=== PATIENT | male | born 1945 | race Caucasian/White ===

== ENCOUNTER 2019-07-11 02:14 | Emergency (ER) | payer MEDICARE ==
[~2019-07-11] VITALS: Ht 177.8 cm; Wt 132.9 kg
--- OUTSIDE RECORDS SUMMARY | ~2019-07-11 | XMS | Encounter Summary ---
Demographics + + + | Address | [address] | | | [place] [address] | + + + | Home Phone | | + + + | Preferred Language | Unknown | + + + | Marital Status | | + + + | Taoism Affiliation | Unknown | + + + | Race | Unknown | + + + | Ethnic Group | Unknown | + + + Author + + + | Author | [facility] (Historical as of | | | 05-06-19) | + + + | Organization | [facility] (Historical as of | | | 05-06-19) | + + + | Address | Unknown | + + + | Phone | Unavailable | + + + Support + + +---------+ + | Name | Relationship | Address | Phone | + + +---------+ + | Kenn Wallace | ECON | Unknown | | + + +---------+ + Care Team Providers + +------+ + | Care Tank Carpenter Name | Role | Phone | + +------+ + | Omar Robles MD | PCP | | + +------+ + Reason for Visit + + + | Reason | Comments | + + + | Follow-up | Memory loss | + + + Encounter Details +--------+---------+ + + + | Date | Type | Department | Care Team | Description | +--------+---------+ + + + | 04/24/ | Office | [facility] | Dmitry Montes, | Memory loss (Primary | | 2019 | Visit | [facility] | MD [address] | Dx); Exercise | | | | [address] | [place], [place] | counseling; Dietary | | | | [place] | [address] | counseling | | | | [address] | | | | | | [phone] | | | +--------+---------+ + + + Social History + +-------+ +--------+------+ | Tobacco Use | Types | Packs/Day | Years | Date | | | | | Used | | + +-------+ +--------+------+ | Never Smoker | | | | | + +-------+ +--------+------+ + +---+---+---+ | Smokeless Tobacco: | | | | | Never Used | | | | + +---+---+---+ + + +---------+ + | Alcohol Use | Drinks/We | oz/Week | Comments | | | ek | | | + + +---------+ + | Yes | | | rarely | + + +---------+ + + + + | Sex Assigned at | Date Recorded | | | | + + + | Not on file | | + + + as of this encounter Last Filed Vital Signs + + + + | Vital Sign | Reading | Time Taken | + + + + | Blood Pressure | 94/47 | 04/24/2019 9:25 AM PDT | + + + + | Pulse | 66 | 04/24/2019 9:25 AM PDT | + + + + | Temperature | - | - | + + + + | Respiratory Rate | - | - | + + + + | Oxygen Saturation | 95% | 04/24/2019 9:25 AM PDT | + + + + | Inhaled Oxygen | - | - | | Concentration | | | + + + + | Weight | 128.2 kg (282 lb 9.6 | 04/24/2019 9:25 AM PDT | | | oz) | | + + + + | Height | 177.8 cm (5' 10") | 04/24/2019 9:25 AM PDT | + + + + | Body Mass Index | 40.55 | 04/24/2019 9:25 AM PDT | + + + + in this encounter Instructions Patient Instructions - Dmitry Montes MD - 04/24/2019 10:15 AM PDT Donepezil tablets Brand Name: Aricept What is this medicine? DONEPEZIL (avitia NEP e zil) is used to treat mild to moderate dementia caused by Alzheimer's disease. How should I use this medicine? Take this medicine by mouth with a glass of water. Follow the directions on the prescriptio n label. You may take this medicine with or without food. Take this medicine at regular inte rvals. This medicine is usually taken before bedtime. Do not take it more often than directe d. Continue to take your medicine even if you feel better. Do not stop taking except on your doctor's advice. If you are taking the 23 mg donepezil tablet, swallow it whole; do not cut, crush, or chew it. Talk to your leasing specialist regarding the use of this medicine in children. Special care may be needed. What side effects may I notice from receiving this medicine? Side effects that you should report to your doctor or health resident care provider as soon as p ossible: allergic reactions like skin rash, itching or hives, swelling of the face, lips, or tong ue feeling faint or lightheaded, falls loss of bladder control seizures signs and symptoms of a dangerous change in heartbeat or heart rhythm like chest pain; d izziness; fast or irregular heartbeat; palpitations; feeling faint or lightheaded, falls; br eathing problems signs and symptoms of infection like fever or chills; cough; sore throat; pain or troubl e passing urine signs and symptoms of liver injury like dark yellow or brown urine; general ill feeling or flu-like symptoms; light-colored stools; loss of appetite; nausea; right upper belly pain ; unusually weak or tired; yellowing of the eyes or skin slow heartbeat or palpitations unusual bleeding or bruising vomiting Side effects that usually do not require medical attention (report to your doctor or health resident care provider if they continue or are bothersome): diarrhea, especially when starting treatment headache loss of appetite muscle cramps nausea stomach upset What may interact with this medicine? Do not take this medicine with any of the following medications: certain medicines for fungal infections like itraconazole, fluconazole, posaconazole, an d voriconazole cisapride dextromethorphan; quinidine dofetilide dronedarone pimozide quinidine thioridazine ziprasidone This medicine may also interact with the following medications: antihistamines for allergy, cough and cold atropine bethanechol carbamazepine certain medicines for bladder problems like oxybutynin, tolterodine certain medicines for Parkinson's disease like benztropine, trihexyphenidyl certain medicines for stomach problems like dicyclomine, hyoscyamine certain medicines for travel sickness like scopolamine dexamethasone ipratropium NSAIDs, medicines for pain and inflammation, like ibuprofen or naproxen other medicines for Alzheimer's disease other medicines that prolong the QT interval (cause an abnormal heart rhythm) phenobarbital phenytoin rifampin, rifabutin or rifapentine What if I miss a dose? If you miss a dose, take it as soon as you can. If it is almost time for your next dose, ta ke only that dose, do not take double or extra doses. Where should I keep my medicine? Keep out of reach of children. Store at room temperature between 15 and 30 degrees C (59 and 86 degrees F). Throw away any unused medicine after the expiration date. What should I tell my health care provider before I take this medicine? They need to know if you have any of these conditions: asthma or other lung disease difficulty passing urine head injury heart disease history of irregular heartbeat liver disease seizures (convulsions) stomach or intestinal disease, ulcers or stomach bleeding an unusual or allergic reaction to donepezil, other medicines, foods, dyes, or preservat kali or trying to get breast-feeding What should I watch for while using this medicine? Visit your doctor or health resident care provider for regular checks on your progress. Check wi th your doctor or health resident care provider if your symptoms do not get better or if they get worse. You may get drowsy or dizzy. Do not drive, use machinery, or do anything that needs mental alertness until you know how this drug affects you. NOTE:This sheet is a summary. It may not cover all possible information. If you have questi ons about this medicine, talk to your doctor, pharmacist, or health care provider. Copyright 2019 [employer] in this encounter Progress Notes Dmitry Montes MD - 04/24/2019 10:15 AM PDTFormatting of this note may be different from the original. Subjective: Patient ID: Ceferino Wallace is a 73 y.o. male. HPI I have seen this patient on 01/17/19 for evaluation of memory deficit. - Onset, context and course: 2013; six months after ; progressive. 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 No problems with ADL but need to be reminded. No problem using appliance and tools but he m ay forget the sotove on. No hallucination. - Duration: Constant. - Frequency and last one: Daily. - Associated symptoms: No gait problem but arthritis. No incontinence. FLY using CPAP but i nsomnia. - Aggravating factors: None. - Alleviating factors: None. - Previous record/diagnosis and treatment: FLY on CPAP. Mood is good with no suicidal idea. CBC and CMP from Jul, 2018: Unremaakable. TSH was (2.02) and B12 was (824). Syphilis, NR. Since last visit: Stable, one partial fall (stood up fast), no injury. No dysphagia. No loc . No hallucination. Mood is ok, with no S/H ideas. Brain MRI 02/07/19: 1. Diffuse cerebral atrophy with probable mild chronic white matter microvascular ischemic gliosis. 2. Small area of susceptibility artifact in the frontal lobe which may represent chronic mi crohemorrhage, cavernoma, or focal calcification. Labs: Not done. WACE: 68/100 with MMSE of He does not drive. Past Medical History Diagnosis Date CAD (coronary artery disease) 02/04/2015 HTN (hypertension), benign 02/04/2015 Hyperlipidemia 02/04/2015 Neuropathy Type 2 diabetes mellitus (HCC) FHx: CAD HTN Social History Social History Marital status: Spouse name: N/A Number of children: N/A Years of education: N/A Occupational History Not on file. Social History Main Topics Smoking status: Never Smoker Smokeless tobacco: Never Used Alcohol use Yes Comment: rarely Drug use: No Sexual activity: Not on file Other Topics Concern Not on file Social History Narrative No narrative on file Past medical history, family history and social history were reviewed and updated as necess negrita. Review of Systems No report of new general, or neurologic symptoms except to what mentioned in my HPI. Objective: Physical Exam Vitals: Vitals: 04/24/19 0925 BP: 94/47 Pulse: 66 SpO2: 95% General: Well developed, in no acute distress Speech: Is normal; fluent and spontaneous with normal naming and repetition. Cognition: The patient is oriented to person, only. Cranial Nerves: At this time, the pupils are equal, round, and reactive to light. Extraocul ar movements are intact. Trigeminal sensation is intact. The face is symmetric. Voice is nor mal.The tongue has normal motion. Coordination: Normal finger to nose. Gait: Antalgic. Strength: Strength is 5-/5 in the upper and lower limbs. Light Touch: Normal light touch sensation in upper and lower extremities. 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 2- Obesity, FLY on CPAP and insomnia. 3- HTN and DM. I reviewed the available images with the patient and agree with the radiologist interpretat ion. H/o head trauma, left frontal GRE signal is most likely due to head trauma / HTN or les s likely vascular malformation. Right temporal arachnoid cyst. Plan: 1- The differential diagnosis and the necessary work up were discussed with the patient in detail. 2- I will request the previous record to be sent to my office for review. 3- We discussed the safety issues in detail including safe environment. No falls. 4- For #1, labs are pending. Educated him about healthy diet, weight control, physical and mental exercises. Discussed Aricept trial, he and son agreed. He decided to Hold on referra l to ST. 5- For #2, follow with PCP and consider referral to sleep specialist. 6- I covered with the patient all side effects of the regimen and the interaction with othe r medications (V and in written). Patient understands and agrees to proceed with the regimen / plan. 7- Risk factors modification per PCP. RTC in 2-3 months or prn. However, patient was instru cted to call with any concern, if symptoms are worsening, not improving or if any side effec ts related to regimen. in this encounter Plan of Treatment Not on fileas of this encounter Visit Diagnoses + + | Diagnosis | + + | Memory loss - Primary | + + | Exercise counseling | + + | Dietary counseling | + + | Dietary surveillance and counseling | + +
--- OUTSIDE RECORDS SUMMARY | ~2019-07-11 | XMS | Encounter Summary ---
Demographics + + + | Address | [address] | | | [place] [address] | + + + | Home Phone | | + + + | Preferred Language | Unknown | + + + | Marital Status | | + + + | Muslim Affiliation | Unknown | + + + | Race | Unknown | + + + | Ethnic Group | Unknown | + + + Author + + + | Author | [facility] (Historical as of | | | 05-06-19) | + + + | Organization | [facility] (Historical as of | | | 05-06-19) [...] Team Providers + +------+ + | Care Commercial Roofer Name | Role | Phone | + +------+ + | Omar Robles MD | PCP | | + +------+ + Reason for Visit +--------+ + | Reason | Comments | +--------+ + | Other | | +--------+ + Encounter Details +--------+ + + + + | Date | Type | Department | Care Team | Description | +--------+ + + + + | 08/ | Telephone | [facility] | Dmitry Montes, | Other | | 2019 | | [facility] | [address] | | | | | [address] | [place], [place] | | | | | [place], [place] | [address] | | | | | [address] | | | | | | [phone] | | | +--------+ + + + + Social History + +-------+ [...] + + + as of this encounter Plan of Treatment Not on fileas of this encounter Visit Diagnoses Not on filein this encounter"
--- OUTSIDE RECORDS SUMMARY | ~2019-07-11 | XMS | Encounter Summary ---
Demographics + + + | Address | [address] | | | [place] [address] | + + + | Home Phone | | + + + | Preferred Language | Unknown | + + + | Marital Status | | + + + | Latter-Day Affiliation | Unknown | + + + | Race | Unknown | + + + | Ethnic Group | Unknown | + + + Author + + + | Author | [facility] | | | and [place] | + + + | Organization | [facility] | | | and [place] | + + + | Address | Unknown | + + + | Phone | Unavailable | + + + Support + + + + + | Name | Relationship | Address | Phone | + + + + + | Ivis Wallace | ECON | [address] | | | | | [place] | | | | | [address] | | + + + + + | Kenn Wallace | ECON | Unknown | | + + + + + Care Team Providers + +------+ + | Care Horizontal Drill Operator Name | Role | Phone | + +------+ + | Kenn Camejo | PCP | | | MD | | | + +------+ + Reason for Visit + + + | Reason | Comments | + + + | Medication Refill | request | + + + Encounter Details +--------+ + + + + | Date | Type | Department | Care Team | Description | +--------+ + + + + | 06/13/ | Telephone | [facility] | Dmitry Montes, | Medication Refill | | 2019 | | NEUROLOGY [address] | (request) | | | | [address] | | | | | [place], [place] | [place] [address] | | | | | [address] | [phone] | | | | | [phone] | | | +--------+ + + + + Social History + +-------+ +--------+------+ | Tobacco Use | Types | Packs/Day | Years | Date | | | | | Used | | + +-------+ +--------+------+ | Never Smoker | | | | | + +-------+ +--------+------+ + + +---------+ + | Alcohol Use | Drinks/We | oz/Week | Comments | | | ek | | | + + +---------+ + | No | | | Alcoholic Drinks/day: rarely | + + +---------+ + + + + | Sex Assigned at | Date Recorded | | | | + + + | Not on file | | + + + + + + + | Job Start Date | Occupation | Industry | + + + + | Not on file | Not on file | Not on file | + + + + + + + + | Travel History | Travel Start | Travel End | + + + + + + | No recent travel history available. | + + documented as of this encounter Functional Status + + + + | Functional Status | Response | Date of Assessment | + + + + | Are you deaf or do you have serious | No | 10/14/2015 | | difficulty hearing? | | | + + + + | Are you blind or do you have serious | No | 10/14/2015 | | difficulty seeing, even when wearing | | | | glasses? | | | + + + + | Do you have serious difficulty walking or | No | 10/14/2015 | | climbing stairs? (5 years old or older) | | | + + + + | Do you have difficulty dressing or bathing? | No | 10/14/2015 | | (5 years old or older) | | | + + + + | Because of a physical, mental, or emotional | Yes - son is | 10/14/2015 | | condition, do you have difficulty doing | caregiver, pt is | | | errands alone such as visiting a doctor's | forgetful | | | office or shopping? [15 years old or | | | | older)] | | | + + + + + + + + | Cognitive Status | Response | Date of Assessment | + + + + | Because of a physical, mental, or emotional | Yes | 10/14/2015 | | condition, do you have serious difficulty | | | | concentrating, remembering, or making | | | | decisions? (5 years old or older) | | | + + + + documented as of this encounter Plan of Treatment +--------+---------+ + + + | Date | Type | Specialty | Care Team | Description | +--------+---------+ + + + | 07/25/ | Office | Neurology | Dmitry Montes, | | | 2019 | Visit | | MD [address] | | | | | | [address] | | | | | | [place] [address] | | | | | | [phone] | | | | | | | | +--------+---------+ + + + documented as of this encounter Visit Diagnoses Not on filedocumented in this encounter"
--- OUTSIDE RECORDS SUMMARY | ~2019-07-11 | XMS | Clinical Summary ---
Demographics + + + | Address | [address] | | | [place] [address] | + + + | Home Phone | | + + + | Preferred Language | Unknown | + + + | Marital Status | | + + + | Gnosticism Affiliation | Unknown | + + + | Race | Unknown | + + + | Ethnic Group | Unknown | + + + Author + + + | Author | [facility] | | | and [place] | + + + | Organization | [facility] | | | and [place] [...] [place] | | | | | [address] | | + + + + + | Kenn Wallace | ECON | Unknown | | + + + + + Care Team Providers + +------+ + | Care Story Analyst Name | Role | Phone | + +------+ + | Kenn Camejo | PCP | | | MD | | | + +------+ + Allergies + + + + + + | Active Allergy | Reactions | Severity | Noted | Comments | | | | | Date | | + + + + + + | Penicillins | Itching, Rash | Medium | 10/14/19 | | | | | | 16 | | + + + + + + Medications + + + +---------+------+------+-------+ | Medication | Sig | Dispensed | Refills | Star | End | Statu | | | | | | t | Date | s | | | | | | Date | | | + + + +---------+------+------+-------+ | aspirin 81 mg EC | Take 81 mg by mouth | | 0 | | | Activ | | tablet | Daily. | | | | | e | + + + +---------+------+------+-------+ | brimonidine | Place 1 drop into | | 0 | | | Activ | | (ALPHAGAN) 0.2% | both eyes 2 times | | | | | e | | ophthalmic solution | daily. | | | | | | + + + +---------+------+------+-------+ | artificial tears | Place 1 drop into | | 0 | | | Activ | | (REFRESH PLUS) 0.5% | both eyes 4 times | | | | | e | | SOLN | daily as needed. | | | | | | + + + +---------+------+------+-------+ | docusate sodium | Take 100 mg by mouth | | 0 | | | Activ | | (COLACE) 100 mg | 2 times daily. | | | | | e | | capsule | While taking pain | | | | | | | | medication to soften | | | | | | | | your stool. | | | | | | + + + +---------+------+------+-------+ | FLUoxetine | Take 60 mg by mouth | | 0 | | | Activ | | (PROZAC) 20 mg | Daily. For | | | | | e | | capsule | depression. Take | | | | | | | | three 20 mg capsules | | | | | | | | daily | | | | | | + + + +---------+------+------+-------+ | fluticasone | 2 sprays by Nasal | | 0 | | | Activ | | (FLONASE) 50 | route Daily. | | | | | e | | mcg/nasal spray | | | | | | | + + + +---------+------+------+-------+ | gabapentin | Take 100 mg by mouth | | 0 | | | Activ | | (NEURONTIN) 100 mg | nightly. | | | | | e | | capsule | | | | | | | + + + +---------+------+------+-------+ | latanoprost | Place 1 drop into | | 0 | | | Activ | | (XALATAN) 0.005% | both eyes nightly. | | | | | e | | ophthalmic solution | | | | | | | + + + +---------+------+------+-------+ | isosorbide | Take 60 mg by mouth | | 0 | | | Activ | | mononitrate (IMDUR) | Daily. | | | | | e | | 60 mg ER tablet | | | | | | | + + + +---------+------+------+-------+ | Multiple | Take 1 tablet by | | 0 | | | Activ | | Vitamins-Minerals | mouth Daily. | | | | | e | | (ADULT MULTIVITAMIN | | | | | | | | WITH MINERALS/IRON) | | | | | | | | TABS | | | | | | | + + + +---------+------+------+-------+ | omeprazole | Take 40 mg by mouth | | 0 | | | Activ | | (PRILOSEC) 20 mg | every morning | | | | | e | | capsule | (before breakfast). | | | | | | + + + +---------+------+------+-------+ | simvastatin | Take 40 mg by mouth | | 0 | | | Activ | | (ZOCOR) 80 mg tablet | nightly. Take 1/2 | | | | | e | | | tablet (40 mg) at | | | | | | | | bedtime to lower | | | | | | | | your cholesterol. | | | | | | + + + +---------+------+------+-------+ | magnesium oxide | Take 420 mg by mouth | | 0 | | | Activ | | (MAG-OX) 400 mg | Daily. | | | | | e | | tablet | | | | | | | + + + +---------+------+------+-------+ | benzonatate | Take 100 mg by mouth | | 0 | | | Activ | | (TESSALON) 100 mg | 3 times daily as | | | | | e | | capsule | needed for Cough. | | | | | | + + + +---------+------+------+-------+ | diphenhydrAMINE | Take 25 mg by mouth | | 0 | | | Activ | | (BENADRYL) 25 mg | every 4 hours as | | | | | e | | tablet | needed for Itching. | | | | | | + + + +---------+------+------+-------+ | carvedilol (COREG) | Take 12.5 mg by | | 0 | | | Activ | | 12.5 mg tablet | mouth 2 times daily | | | | | e | | | (with breakfast & | | | | | | | | dinner). | | | | | | + + + +---------+------+------+-------+ | lisinopril | Take 2.5 mg by mouth | | 0 | | | Activ | | (PRINIVIL,ZESTRIL) | Daily. | | | | | e | | 2.5 MG tablet | | | | | | | + + + +---------+------+------+-------+ | glucose 4 G | Take 16 g by mouth | | 0 | | | Activ | | chewable tablet | as needed (low blood | | | | | e | | | sugar). | | | | | | + + + +---------+------+------+-------+ | traZODone | Take 50 mg by mouth | | 0 | | | Activ | | (DESYREL) 50 mg | nightly as needed | | | | | e | | tablet | for Sleep. | | | | | | + + + +---------+------+------+-------+ | lactase (LACTAID) | Take 9,000 Units by | | 0 | | | Activ | | 9000 UNITS TABS | mouth 3 times daily | | | | | e | | | as needed. | | | | | | + + + +---------+------+------+-------+ | albuterol 90 | Inhale 2 puffs into | | 0 | | | Activ | | mcg/puff inhaler | the lungs every 4 | | | | | e | | | hours as needed for | | | | | | | | Shortness of Breath. | | | | | | + + + +---------+------+------+-------+ | melatonin 5 mg | Take 5 mg by mouth | | 0 | | | Activ | | tablet | nightly as needed | | | | | e | | | for Insomnia. | | | | | | + + + +---------+------+------+-------+ | OMEGA-3 KRILL OIL | Take 350 mg by mouth | | 0 | | | Activ | | PO | Daily. | | | | | e | + + + +---------+------+------+-------+ | ascorbic acid | Take 1,000 mg by | | 0 | | | Activ | | (VITAMIN C) 500 mg | mouth Daily. | | | | | e | | chewable tablet | | | | | | | + + + +---------+------+------+-------+ | acetaminophen | Take 1,000 mg by | | 0 | | | Activ | | (TYLENOL) 500 mg | mouth every 6 hours | | | | | e | | tablet | as needed for Pain | | | | | | | | (for knee | | | | | | | | arthritis). | | | | | | + + + +---------+------+------+-------+ | donepezil | Take 1 tablet by | 30 | 3 | 05/22 | | Activ | | (ARICEPT) 5 mg | mouth nightly. | tablet | | 02/06 | | e | | tablet | | | | 19 | | | + + + +---------+------+------+-------+ Active Problems + + + | Problem | Noted Date | + + + | Precordial pain | 10/14/2015 | + + + | S/P CABG x 3 | 10/14/2015 | + + + Encounters +--------+ + + + + | Date | Type | Specialty | Care Team | Description | +--------+ + + + + | 06/13/ | Telephone | Neurology | Dmitry Montes, | Medication Refill | | 2019 | | | MD | (request) | +--------+ + + + + | 05/05/ | Orders Only | Neurology | Dmitry Montes, | Other amnesia | | 2018 | | | MD | | +--------+ + + + + from Last 3 Months Family History + + +------+ + | Medical History | Relation | Name | Comments | + + +------+ + | Heart disease | Father | | | + + +------+ + | Hypertension | Father | | | + + +------+ + | Heart disease | Mother | | | + + +------+ + | Hypertension | Mother | | | + + +------+ + + +------+ + + | Relation | Name | Status | Comments | + +------+ + + | Father | | | | + +------+ + + | Father | | | | + +------+ + + | Mother | | | | + +------+ + + | Mother | | | | + +------+ + + Social History + +-------+ +--------+------+ [...] recent travel history available. | + + Last Filed Vital Signs + + + + | Vital Sign | Reading | Time Taken | + + + + | Blood Pressure | 94/47 | 04/24/2019928 PDT | + + + + | Pulse | 66 | 04/24/2019928 PDT | + + + + | Temperature | 36.7 C (98.1 F) | 10/14/20151229 PST | + + + + | Respiratory Rate | 12 | 10/14/20151229 PST | + + + + | Oxygen Saturation | - | - | + + + + | Inhaled Oxygen | - | - | | Concentration | | | + + + + | Weight | 128.2 kg (282 lb 9.6 | 04/24/2019928 PDT | | | oz) | | + + + + | Height | 177.8 cm (5' 10") | 04/24/2019928 PDT | + + + + | Body Mass Index | 40.55 | 04/24/2019 0929 PDT | + + + + Plan of Treatment +--------+---------+ + + + | Date | Type | Specialty | Care Team | Description | +--------+---------+ + + + | 07/25/ | Office | Neurology | Dmitry Montes, | | | 2019 | Visit | | MD Jg CRONIN | | | | | | [address] | | | | | | [place] [address] | | | | | | [phone] | | | | | | | | +--------+---------+ + + + + + + + + | Health Maintenance | Due Date | Last Done | Comments | + + + + + | Hepatitis C | | | | | Screening | 7 | | | + + + + + | Vaccine: | | | | | Dtap/Tdap/Td (1 - | 6 | | | | Tdap) | | | | + + + + + | Colorectal Cancer | | | | | Screening | 7 | | | | (Colonoscopy) | | | | + + + + + | Vaccine: Zoster (1 | | | | | of 2) | 7 | | | + + + + + | Vaccine: | | | | | Pneumococcal 65+ | 2 | | | | Low/Medium Risk (1 | | | | | of 2 - PCV13) | | | | + + + + + | Adult Annual | | | | | Wellness Visit | 9 | | | + + + + + | Vaccine: Influenza | | | | | (#1) | 9 | | | + + + + + Results Not on filefrom Last 3 Months Insurance + +--------+ +--------+ +---------+--------+ | Payer | Benefi | Subscriber | Effect | Phone | Address | Type | | | t Plan | ID | wilder | | | | | | / | | Dates | | | | | | Group | | | | | | + +--------+ +--------+ +---------+--------+ | [employer] | [place] | [id number] | | | | Indemn | | | [place] | | 016-Pr | | | ity | | | ADMIN | | esent | | | | | | [place] | | | | | | [place] | | | | | | + +--------+ +--------+ +---------+--------+ | [employer] INS | BANKER | [id number] | Effect | [phone] | | Indemn | | | S LIFE | [phone] | wilder | 4 | | ity | | | INS | | for | | | | | | | | all | | | | | | | | dates | | | | + +--------+ +--------+ +---------+--------+ | MEDICARE | MEDICA | [id number] | 05/21/20 | [phone] | | Medica | | | RE | | 11-Pre | 5 | | re | | | PART A | | sent | | | | | | AND B | | | | | | + +--------+ +--------+ +---------+--------+ + +--------+ +--------+ + + | Guarantor Name | Accoun | Relation to | Date | Phone | Billing Address | | | t Type | Patient | of | | | | | | | | | | + +--------+ +--------+ + + | Ceferino Wallace | Person | Self [birth year] | [address] | | | al/Fam | | 1946 | [phone] | [place] [address] | | | [place]idy | | | 1 (Home) | | + +--------+ +--------+ + + | Ceferino Wallace | Person | Self [birth year] | [address] | | | al/Fam | | 1946 | [phone] | [place] [address] | | | [place]idy | | | 1 (Home) | | + +--------+ +--------+ + + Advance Directives Patient has advance care planning documents on file. For more information, please contact:[facility] [place] [address]
--- OUTSIDE RECORDS SUMMARY | ~2019-07-11 | XMS | Encounter Summary ---
Demographics + + + | Address | [address] | | | [place] [address] | + + + | Home Phone | | + + + | Preferred Language | Unknown | + + + | Marital Status | | + + + | Denominational Affiliation | Unknown | + + + | Race | Unknown | + + + | Ethnic Group | Unknown | + + + Author + + + | Author | [facility] (Historical as of | | | 05-06-19) | + + + | Organization | [facility] (Historical as of | | | 05-06-19) [...] Team Providers + +------+ + | Care Chef German Name | Role | Phone | + [...] + + | 04/24/ | Office | [facility] | Dmitry Montes, | Memory loss (Primary | | 2019 | Visit | [facility] | MD [address] | Dx); Exercise | | | | [address] | [place], [place] | counseling; Dietary | | | | [place] | [address] | counseling | | | | [address] | | | | | | [phone] | | | +--------+---------+ + + + [...] crush, or chew it. Talk to your chef concierge regarding the use of this medicine in children. Special care may be needed. What side effects may I notice from receiving this medicine? Side effects that you should report to your doctor or health coronary care unit nurse as soon as p ossible: allergic reactions [...] attention (report to your doctor or health coronary care unit nurse if they continue or are bothersome): diarrhea, [...] this medicine? Visit your doctor or health coronary care unit nurse for regular checks on your progress. Check wi th your doctor or health coronary care unit nurse if your symptoms do not get better [...] pharmacist, or health care provider. Copyright 2019 [employer] in this encounter Progress Notes Dmitry Montes MD - 04/24/2019 10:15 AM PDTFormatting of this note may be different from the original. Subjective: Patient ID: Ceferino Wallace is a 73 y.o. male. HPI I have seen this patient on 01/17/19 for evaluation of memory deficit. - Onset, context and course: 2013; six months after ; progressive. 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
--- OUTSIDE RECORDS SUMMARY | ~2019-07-11 | XMS | Encounter Summary ---
Demographics + + + | Address | [address] | | | [place] [address] | + + + | Home Phone | | + + + | Preferred Language | Unknown | + + + | Marital Status | | + + + | Latter Day Affiliation | Unknown | + + + | Race | Unknown | + + + | Ethnic Group | Unknown | + + + Author + + + | Author | [facility] | | | and [place] | + + + | Organization | [facility] | | | and [place] | [...] [place] | | | | | [address] | | + + + + + | Kenn Wallace | ECON | Unknown | | + + + + + Care Team Providers + +------+ + | Care Product Safety Compliance Leader Name | Role | Phone | + [...] + + | 06/13/ | Telephone | [facility] | Dmitry Montes, | Medication Refill | | 2019 | | NEUROLOGY [address] | (request) | | | | [address] | [address] | | | | | [place], [place] | [place] [address] | | | | | [address] | [phone] | | | | | [phone] | | | +--------+ + + + [...] | | | | | [place] [address] | | | | | | [phone] | | | | | | | | +--------+---------+ + + + documented as of this encounter Visit Diagnoses Not on filedocumented in this encounter"
--- OUTSIDE RECORDS SUMMARY | ~2019-07-11 | XMS | Encounter Summary ---
Demographics + + + | Address | [address] | | | [place] [address] | + + + | Home Phone | | + + + | Preferred Language | Unknown | + + + | Marital Status | | + + + | Yazidism Affiliation | Unknown | + + + | Race | Unknown | + + + | Ethnic Group | Unknown | + + + Author + + + | Author | [facility] (Historical as of | | | 05-06-19) | + + + | Organization | [facility] (Historical as of | | | 05-06-19) [...] Team Providers + +------+ + | Care Sales Stock Associate Name | Role | Phone | + [...] | [address] | [place], [place] | | | | | [place], [place] | [address] | | | | | [address] | | | | | | [phone] | | | +--------+ + + + [...]
--- OUTSIDE RECORDS SUMMARY | ~2019-07-11 | XMS | Clinical Summary ---
Demographics + + + | Address | [address] | | | [place] [address] | + + + | Home Phone | | + + + | Preferred Language | Unknown | + + + | Marital Status | | + + + | Pentecostalism Affiliation | Unknown | + + + | Race | Unknown | + + + | Ethnic Group | Unknown | + + + Author + + + | Author | [facility] | | | and [place] | + + + | Organization | [facility] | | | and [place] [...] [place] | | | | | [address] | | + + + + + | Kenn Wallace | ECON | Unknown | | + + + + + Care Team Providers + +------+ + | Care Radio Machinist Name | Role | Phone | + [...] | 06/13/ | Telephone | Neurology | Dmirty Montes, | Medication Refill | | 2019 [...] D | | | | | | [place] [address] | | | | | | [phone] | | | | | | | [...] +---------+--------+ | [employer]MIN | [place] | [id number] | | | | Indemn | | | NS | | 016-Pr | | | ity | | | ADMIN | | esent | | | | | | [place] | | | | | | | [place] | | | | | | + +--------+ +--------+ +---------+--------+ | [employer] INS | BANKER | [id number] | Effect | [phone] | | Indemn | | | S LIFE | [phone] | wilder | 4 | | ity | | | INS | | for | | | | | | | | all | | | | | | | | dates | | | | + +--------+ +--------+ +---------+--------+ | MEDICARE | MEDICA | [id number] | 05/21/20 | [phone] | | Medica [...] | 1946 | [phone] | [place] [address] | | | [place] | | | 1 (Home) | | + +--------+ +--------+ + + | Ceferino Wallace | Person | Self [birth year] | [address] | | | al/Fam | | 1946 | [phone] | [place] [address] | | | [place] | | | 1 (Home) | | + +--------+ +--------+ + + Advance Directives Patient has advance care planning documents on file. For more information, please contact:[facility] [address]
--- OUTSIDE RECORDS SUMMARY | ~2019-07-11 | XMS | Clinical Summary ---
Demographics + + + | Address | [address] | | | [place] [address] | + + + | Home Phone | | + + + | Preferred Language | Unknown | + + + | Marital Status | | + + + | Jewish Affiliation | Unknown | + + + | Race | Unknown | + + + | Ethnic Group | Unknown | + + + Author + + + | Author | [facility] (Historical as of | | | 05-06-19) | + + + | Organization | [facility] (Historical as of | | | 05-06-19) | + + + | Address | Unknown | + + + | Phone | Unavailable | + + + Support + + +---------+ + | Name | Relationship | Address | Phone | + + +---------+ + | Kenn Donahue | ECON | Unknown | | + + +---------+ + Care Team Providers + +------+ + | Care Commercial Installer Name | Role | Phone | + +------+ + | Omar Robles MD | PP | | + +------+ + Allergies + + + + + + | Active Allergy | Reactions | Severity | Noted | Comments | | | | | Date | | + + + + + + | Penicillins | Itching, Rash | Medium | 10/14/19 | | | | | | 16 | | + + + + + + Current Medications + + +--------+---------+------+------+-------+ | Prescription | Sig. | Disp. | Refills | Star | End | Statu | | | | | | t | Date | s | | | | | | Date | | | + + +--------+---------+------+------+-------+ | | Apply 1 drop to eye. | | | | | Activ | | carboxymethylcellulo | | | | | | e | | se (REFRESH TEARS) | | | | | | | | 0.5 % SOLN | | | | | | | + + +--------+---------+------+------+-------+ | aspirin 81 MG | Take 81 mg by mouth. | | | | | Activ | | chewable tablet | | | | | | e | + + +--------+---------+------+------+-------+ | lisinopril | Take 2.5 mg by | | | | | Activ | | (ZESTRIL) 2.5 MG | mouth. | | | | | e | | tablet | | | | | | | + + +--------+---------+------+------+-------+ | carvedilol (COREG) | Take 25 mg by mouth. | | | 07/0 | | Activ | | 25 MG tablet | | | | 6/20 | | e | | | | | | 18 | | | + + +--------+---------+------+------+-------+ | isosorbide | Take 60 mg by mouth. | | | | | Activ | | mononitrate 60 MG 24 | | | | | | e | | hr tablet | | | | | | | + + +--------+---------+------+------+-------+ | FLUoxetine | Take 20 mg by mouth. | | | | | Activ | | (PROZAC) 20 MG | | | | | | e | | capsule | | | | | | | + + +--------+---------+------+------+-------+ | fluticasone | 2 sprays by Nasal | | | | | Activ | | (FLONASE) 50 MCG/ACT | route. | | | | | e | | nasal | | | | | | | + + +--------+---------+------+------+-------+ | Multiple | Take 1 tablet by | | | | | Activ | | Vitamins-Minerals | mouth. | | | | | e | | (MULTIVITAMIN WITH | | | | | | | | MINERALS) tablet | | | | | | | + + +--------+---------+------+------+-------+ | insulin aspart | Inject into the | | | | | Activ | | (NOVOLOG PENFILL) | skin. | | | | | e | | 100 UNIT/ML | | | | | | | | injection | | | | | | | + + +--------+---------+------+------+-------+ | Lactase 9000 units | Take 9,000 Units by | | | | | Activ | | TABS | mouth. | | | | | e | + + +--------+---------+------+------+-------+ | donepezil | Take 1 tablet by | 30 | 3 | 08/0 | 08/0 | Activ | | (ARICEPT) 5 MG | mouth nightly. | tablet | | /20 | 20 | e | | tabletIndications: | | | | 19 | 20 | | | Memory loss | | | | | | | + + +--------+---------+------+------+-------+ Active Problems + + + | Problem | Noted Date | + + + | Class 3 obesity with serious comorbidity and body mass index | 03/24/2018 | | (BMI) of 40.0 to 44.9 in adult | | + + + | History of coronary artery bypass graft x 3 | 03/23/2018 | + + + | Type 2 diabetes mellitus without complication, with long-term | 03/23/2018 | | current use of insulin (HCC) | | + + + | CAD (coronary artery disease) | 02/04/2015 | + + + | Chest pain | 02/04/2015 | + + + | Chronic systolic congestive heart failure (HCC) | 02/04/2015 | + + + | HTN (hypertension), benign | 02/04/2015 | + + + | Hyperlipidemia | 02/04/2015 | + + + Encounters +--------+ + + + + | Date | Type | Specialty | Care Team | Description | +--------+ + + + + | 04/24/ | Office | | Dmitry Montes, | Memory loss (Primary | | 2018 | Visit | | MD | Dx); Exercise | | | | | | counseling; Dietary | | | | | | counseling | +--------+ + + + + | 04/24/ | Procedure | | Dmitry Montes, | Memory loss (Primary | | 2018 | visit | | MD | Dx) | +--------+ + + + + | 04/21/ | Telephone | | Dmitry Montes, | Other | | 2019 | | | MD | | +--------+ [...] on file | | + + + Last Filed Vital Signs + [...] AM PDT | + + + + Plan of Treatment + + + + + | Health Maintenance | Due Date | Last Done | Comments | + + + + + | Diabetic Eye Exam | | | | | | 7 | | | + + + + + | Diabetic Foot Exam | | | | | | 7 | | | + + + + + | Hemoglobin A1c | | | | | | 7 | | | + + + + + | Microalbumin | | | | | Screening | 7 | | | + + + + + | Vaccine: | | | | | Dtap/Tdap/Td (1 - | 6 | | | | Tdap) | | | | + + + + + | Colon Cancer | | | | | Screening [...] | + + + + + | Statin Therapy | | | | | (optimal intensity) | 9 | | | + + + + + | Vaccine: Influenza | | | | | (#1) | 9 | | | + + + + + Results Not on filefrom Last 3 Months Insurance + +--------+ +------+ + + | Payer | Benefi | Subscriber | Type | Phone | Address | | | t Plan | ID | | | | | | / | | | | | | | Group | | | | | + +--------+ +------+ + + | [place] | [id number] | [phone] FEE SERVICES [id number] | | ADMINISTRATION | CHOICE | | | [phone] | | | | | | | [place] | | | | | | | [phone] | + +--------+ +------+ + + + +--------+ +--------+ + + | Guarantor Name | Accoun | Relation to | Date | Phone | Billing Address | | | t Type | Patient | of | | | | | | | | | | + +--------+ +--------+ + + | CEFERINO DONAHUE | Vetera | Self [birth year] Home: | [address] | | | ns | | 1946 | [phone] [place] [address] | | | Admini | | | 1999 | | | | strati | | | | | | | on | | | | | + +--------+ +--------+ + +
--- OUTSIDE RECORDS SUMMARY | ~2019-07-11 | XMS | Encounter Summary ---
Demographics + + + | Address | [address] | | | [place] [address] | + + + | Home Phone | | + + + | Preferred Language | Unknown | + + + | Marital Status | | + + + | Episcopal Affiliation | Unknown | + + + | Race | Unknown | + + + | Ethnic Group | Unknown | + + + Author + + + | Author | [facility] | | | and [place] | + + + | Organization | [facility] | | | and [place] [...] [place] | | | | | [address] | | + + + + + | Kenn Wallace | ECON | Unknown | | + + + + + Care Team Providers + +------+ + | Care Extension Course Coordinator Name | Role | Phone | + +------+ + | Kenn Camejo | PCP | | | MD | | | + +------+ + Encounter Details +--------+ + + + + | Date | Type | Department | Care Team | Description | +--------+ + + + + | 05/05/ | Orders Only | [facility] | Dmitry Montes, | Other amnesia | | 2019 | | NEUROLOGY [address] | MD [address] | | | | | [address] | [address] | | | | | [place], [place] | [place] [address] | | | | | [address] | [phone] | | | | | [phone] | | | +--------+ + + + [...] D | | | | | | [place] [address] | | | | | | [phone] | | | | | | | | +--------+---------+ + + + + +--------+ + + | Name | Priori | Associated Diagnoses | Order Schedule | | | ty | | | + +--------+ + + | Folate | Routin | Other amnesia | Expected: | | | e | | 01/17/2019, Expires: | | | | | 01/18/2020 | + +--------+ + + | Vitamin B-1, Whole Blood | Routin | Other amnesia | Expected: | | | e | | 01/17/2019, Expires: | | | | | 01/18/2020 | + +--------+ + + documented as of this encounter Visit Diagnoses + + | Diagnosis | + + | Other amnesia | + + documented in this encounter"
--- OUTSIDE RECORDS SUMMARY | ~2019-07-11 | XMS | Clinical Summary ---
Demographics + + + | Address | [address] | | | [place] [address] | + + + | Home Phone | | + + + | Preferred Language | Unknown | + + + | Marital Status | | + + + | Adventism Affiliation | Unknown | + + + | Race | Unknown | + + + | Ethnic Group | Unknown | + + + Author + + + | Author | [facility] (Historical as of | | | 05-06-19) | + + + | Organization | [facility] (Historical as of | | | 05-06-19) [...] Team Providers + +------+ + | Care Diaper Machine Tender Name | Role | Phone | + [...] + + | [place] | [phone] | | [phone] [employer] [address] | | ADMINISTRATION | CHOICE | | | [phone] | [address] | | | | | | | [place] | | | | | | | [address] | + +--------+ +------+ + + + [...] | | ns | | 1946 | [phone] | [place] [address] | | | Admini | | | 2000 | | | | strati | | | | | | | on | | | | | + +--------+ +--------+ + +
--- OUTSIDE RECORDS SUMMARY | ~2019-07-11 | XMS | Encounter Summary ---
Demographics + + + | Address | [address] | | | [place] [address] | + + + | Home Phone | | + + + | Preferred Language | Unknown | + + + | Marital Status | | + + + | Druze Affiliation | Unknown | + + + | Race | Unknown | + + + | Ethnic Group | Unknown | + + + Author + + + | Author | [facility] (Historical as of | | | 05-06-19) | + + + | Organization | [facility] (Historical as of | | | 05-06-19) [...] Team Providers + +------+ + | Care Kaiako Kura [place] Name | Role | Phone | + +------+ + | Omar Robles MD | PCP | | + +------+ + Reason for Visit +--------+ + | Reason | Comments | +--------+ + | Other | wace | +--------+ + Encounter Details +--------+ + + + + | Date | Type | Department | Care Team | Description | +--------+ + + + + | 04/24/ | Procedure | [facility] | Dmitry Montes, | Memory loss (Primary | | 2019 | visit | [facility] | [address] | Dx) | | | | [address] | [place], [place] | | | | | [place], [place] | [address] | | | | | [address] | | | | | | [phone] | | | +--------+ + + + [...] + + + as of this encounter Progress Notes Adelina Benavides, TINO - 04/24/2019 9:30 AM [facility]'s Cognitive Examination (OMERO) Mod ified for [facility] ([facility]) The patient returns today for detailed cognitive evaluation for memory difficulty. Behavior Observations: The patient seemed engaged and attentive during the examination. The examination processes was explained to the patient in detail. Test Procedure: The patient underwent detailed cognitive function evaluation which composed of visuospatial testing including overlapping pentagons, wire cube and draw a clock; language test includin g naming,comprehension (one-stage, three-stage, complex grammar), repetition (single works a nd phrases), reading (regular and irregular) and writing; orientation; attention and concent ration including immediate recall, calculation or spelling and memory testing including reca ll, anterograde memory, retrograde memory and verbal fluency. Test results: 1. Mini Mental Status Examination The examination included orientation, attention/concentration, recall, language and visuosp atial abilities. The patient received a score of /. 2. Total. WACE score: 3. Orientation/Attention/Concentration 4. Memory 5. Verbal fluency 06/03 6. Language 7. Visuospatial abilities Total : /100 VLOM-Ratio: V + SL = 6.26 O + M If VLOM-ratio < 2.2: Frontotemporal dementia. VLOM-ratio> 3.2 AD IMPRESSION: WACE test with a total score of 68 , MMSE total score, 19 with VLOM ration of 6.26 is suggestive of mild cognitive impairment,mild moderate severe end stage dementia. Clinical correlation is recommended. MCI 84-90+ Mild AD 70-83 Moderate 50-69 Severe 30-49 End stage <30 in this encounter Plan of Treatment Not on fileas of this encounter Visit Diagnoses + + | Diagnosis | + + | Memory loss - Primary | + +"
--- OUTSIDE RECORDS SUMMARY | ~2019-07-11 | XMS | Encounter Summary ---
Demographics + + + | Address | [address] | | | [place] [address] | + + + | Home Phone | | + + + | Preferred Language | Unknown | + + + | Marital Status | | + + + | Latter-Day Affiliation | Unknown | + + + | Race | Unknown | + + + | Ethnic Group | Unknown | + + + Author + + + | Author | [facility] | | | and [place] | + + + | Organization | [facility] | | | and [place] [...] [place] | | | | | [address] | | + + + + + | Kenn Wallace | ECON | Unknown | | + + + + + Care Team Providers + +------+ + | Care Life Coach Name | Role | Phone | + +------+ + | Kenn Camejo | PCP | | | MD | | | + +------+ + Encounter Details +--------+ + + + + | Date | Type | Department | Care Team | Description | +--------+ + + + + | 05/05/ | Orders Only | [facility] | Dmitry Montes, | Other amnesia | | 2019 | | NEUROLOGY [address] | MD [address] | | | | | [address] | [address] | | | | | [place], [place] | [place] [address] | | | | | [address] | [phone] | | | | | [phone] | | | +--------+ + + + [...] | | | | | [place] [address] | | | | | | [phone] | | | | | | | [...]
--- OUTSIDE RECORDS SUMMARY | ~2019-07-11 | XMS | Encounter Summary ---
Demographics + + + | Address | [address] | | | [place] [address] | + + + | Home Phone | | + + + | Preferred Language | Unknown | + + + | Marital Status | | + + + | Scientologist Affiliation | Unknown | + + + | Race | Unknown | + + + | Ethnic Group | Unknown | + + + Author + + + | Author | [facility] (Historical as of | | | 05-06-19) | + + + | Organization | [facility] (Historical as of | | | 05-06-19) [...] Team Providers + +------+ + | Care Machine Stoppage Frequency Checker Name | Role | Phone | + [...] | [address] | [place], [place] | | | | | [place], [place] | [address] | | | | | [address] | | | | | | [phone] | | | +--------+ + + + [...] Adelina Benavides, TINO - 04/24/2019 9:30 AM [facility]'s Cognitive Examination (OMERO) Mod ified for [facility] ([facility]) The patient returns today for detailed [...]
[~2019-07-11 02:14] MED LIST: ASPIR-LOW81 MG PO; BENZONATATE100 MG PO; CARVEDILOL12.5 MG PO; DIPHENHYDRAMINE25 MG PO; DOCUSATE SODIU100 MG PO; FLUOXETINE HCL20 MG PO; ISOSORBIDE MONO30 MG PO; LISINOPRIL5 MG PO; MAGNESIUM OXID420 MG PO; MEGARED OMEGA-1 EAC2 PO; PRILOSEC20 MG PO; PROAIR HFA8.5 GM INH; SIMVASTATIN80 MG PO; TRAZODONE HCL50 MG PO
--- NOTE | 2019-07-11 16:31 | EKG ---
[facility] [address] [facility] [facility] [place], [place] [address] Signed Normal sinus rhythm Normal ECG No previous ECGs available Confirmed by MEAGAN MOMIN DO ([id number]) on 07/11/2019 4:31:24 PM Electronically Signed By: MEAGAN MOMIN DO 07/11/19 1631 PATIENT NAME: MELODY DONAHUE Electrocardiogram DATE OF : 47 PHYSICIAN: MEAGAN MOMIN DO REPORT #: [id number] REPORT IS CONFIDENTIAL AND NOT TO BE RELEASED WITHOUT AUTHORIZATION
== END 2019-07-11 05:28 | disposition home or self-care (01) ==
LOC: ED 02:14
DX: R07.9 Chest pain, unspecified (principal); I10 Essential (primary) hypertension; E11.9 Type 2 diabetes mellitus without complications; I25.2 Old myocardial infarction; K21.9 Gastro-esophageal reflux disease without esophagitis; Z87.891 Personal history of nicotine dependence; Z88.0 Allergy status to penicillin; Z79.82 Long term (current) use of aspirin; Z79.899 Other long term (current) drug therapy
CPT/HCPCS: 71045; 80053; 83735; 84484; 85025; 93005; 93010; 99285-25

== ENCOUNTER 2021-06-07 14:48 | Emergency (ER) | payer MEDICARE ==
[~2021-06-07] VITALS: Ht 177.8 cm; Wt 132.9 kg
--- NOTE | 2021-06-08 18:10 | EKG ---
[facility] [address] [place] [address] Signed Normal sinus rhythm Rightward axis Septal infarct , age undetermined Abnormal ECG When compared with ECG of 11-JUL-2019 02:17, QT has lengthened Confirmed by ANAMIKA BORGES MD ([id number]) on 06/08/2021 6:10:08 PM Electronically Signed By: ANAMIKA BORGES MD 06/08/211809 PATIENT NAME: GODFREYMELODY Electrocardiogram DATE OF : 47 PHYSICIAN: ANAMIKA BORGES MD REPORT #: [id number] REPORT IS CONFIDENTIAL AND NOT TO BE RELEASED WITHOUT AUTHORIZATION
== END 2021-06-07 19:29 | disposition home or self-care (01) ==
LOC: ED 14:48
DX: R55 Syncope and collapse (principal); K59.00 Constipation, unspecified; K63.9 Disease of intestine, unspecified; Z20.822 Contact with and (suspected) exposure to COVID-19; I10 Essential (primary) hypertension; E11.9 Type 2 diabetes mellitus without complications; E78.00 Pure hypercholesterolemia, unspecified; K21.9 Gastro-esophageal reflux disease without esophagitis; I25.2 Old myocardial infarction; G47.30 Sleep apnea, unspecified; Z87.891 Personal history of nicotine dependence; Z88.0 Allergy status to penicillin; Z79.899 Other long term (current) drug therapy; Z79.82 Long term (current) use of aspirin
CPT/HCPCS: 71275; 72192; 74170; 74174; 80053; 85025; 93005; 93010; 99284-25; C9803; J2405; J7030; Q9967; U0003

== ENCOUNTER 2021-06-25 10:45 | Emergency (ER) | payer MEDICARE ==
[~2021-06-25] VITALS: Ht 177.8 cm; Wt 109.8 kg
--- OUTSIDE RECORDS SUMMARY | 2021-06-25 10:54 | XMS ---
PreManage Notification: MELODY DONAHUE Security Geochemical Manager Events No recent Security Events currently on file CRITERIA MET - [facility] - 2 Visits in 30 Days CARE PROVIDERS There are no care providers on record at this time. Andra has no Care Guidelines for this patient. Ngh[place] VISIT COUNT (12 MO.) [address] [facility] [facility] TOTAL 3 NOTE: Visits indicate total known visits. ED/C VISIT TRACKING (12 MO.) 06/25/2021 10:46 [facility] TYPE: Emergency COMPLAINT: - FLU SYMPTOMS 06/24/2021 17:13 [facility] [place] TYPE: Emergency COMPLAINT: - FLU SYMPTOMS 06/07/2021 14:49 [facility] [place] TYPE: Emergency COMPLAINT: - DIZZY DIAGNOSES: - Pure hypercholesterolemia, unspecified - Personal history of nicotine dependence - Allergy status to penicillin - Type 2 diabetes mellitus without complications - Constipation, unspecified - Syncope and collapse - Old myocardial infarction - Other feather boner (current) drug therapy - Sleep apnea, unspecified - Essential (primary) hypertension - Gastro-esophageal reflux disease without esophagitis - Disease of intestine, unspecified - FPC (current) use of aspirin INPATIENT VISIT TRACKING (12 MO.) No inpatient visits to display in this time frame [email or web address]
== END 2021-06-25 14:12 | disposition home or self-care (01) ==
LOC: ED 10:45
DX: U07.1 COVID-19 (principal); I10 Essential (primary) hypertension; E11.9 Type 2 diabetes mellitus without complications; E78.00 Pure hypercholesterolemia, unspecified; K21.9 Gastro-esophageal reflux disease without esophagitis; I25.2 Old myocardial infarction; G47.30 Sleep apnea, unspecified; Z87.891 Personal history of nicotine dependence; Z88.0 Allergy status to penicillin; Z79.4 Long term (current) use of insulin; Z79.82 Long term (current) use of aspirin; Z79.899 Other long term (current) drug therapy
CPT/HCPCS: 71045; 99283-25; M0243; Q0244

== ENCOUNTER 2024-12-30 21:38 | Emergency (ER) | payer MEDICARE ==
[2024-12-30 22:00] LABS: BASOPHILS 0.3 % (0-2); EOSINOPHILS 1.5 % (0-6); HEMOGLOBIN 11.8 g/dL (12.0-18.0); LYMPHOCYTES 10.6 % (24-44); MCH 31.9 (27-36); MCHC 34.6 g/dl (30-36); MCV 92.3 fl (81-99); MONOCYTES 8.5 % (0-12); NEUTROPHILS 79.1 % (39-80); PLATELET COUNT 242 K/uL (140-440); RBC 3.69 M/ul (4.3-5.7); RDW 12.6 (10.5-15.0)
[2024-12-30 22:15] LABS: ALBUMIN 2.1 g/dL (3.4-5.0); ALBUMIN/GLOBULIN RATIO 0.51 (1.1-2.4); ANION GAP 9.3 (7-21); BILIRUBIN, TOTAL 0.5 mg/dL (0.2-1.0); BUN/CREATININE RATIO 25.19 (6.0-28.6); CALCIUM 8.4 mg/dL (8.5-10.1); CREATININE, SERUM 1.27 mg/dL (0.70-1.30); MAGNESIUM 1.4 mg/dL (1.8-2.4); POTASSIUM 4.3 mmol/L (3.5-5.1); PROTEIN, TOTAL 6.2 g/dL (6.4-8.2)
[2024-12-30] MEDS ORDERED: LACTATED RINGER'S 1,000 ML IV ONE (22:30)
[2024-12-30 23:18] LABS: BILIRUBIN, URINE NEGATIVE (negative); BLOOD/HGB, URINE NEGATIVE (Negative); KETONE, URINE SMALL (Negative); LEUK ESTERASE, URINE NEGATIVE (negative); NITRITE, URINE NEGATIVE (negative)
[2024-12-30 23:33] LABS: AMPHETAMINES, URINE NEGATIVE (NEGATIVE); BARBITURATES, URINE NEGATIVE (NEGATIVE); BENZODIAZEPINE, URINE NEGATIVE (NEGATIVE); BUPRENORPHINE, URINE NEGATIVE (NEGATIVE); CANNABINOID, URINE POSITIVE (NEGATIVE); COCAINE, URINE NEGATIVE (NEGATIVE); ECSTASY, URINE NEGATIVE (NEGATIVE); FENTANYL, URINE NEGATIVE (NEGATIVE); METHADONE, URINE NEGATIVE (NEGATIVE); OPIATES, URINE NEGATIVE (NEGATIVE); OXYCODONE, URINE NEGATIVE (NEGATIVE); PHENCYCLIDINE, URINE NEGATIVE (NEGATIVE)
[2024-12-30] MEDS ORDERED: LIDODERM1 EACH TOP (23:59)
[2024-12-31 00:38] VITALS: BP 103/53
== END 2024-12-31 00:41 | disposition home or self-care (01) ==
LOC: ED 21:38
PROVIDERS: Family Medicine
DX: F12.929 Cannabis use, unspecified with intoxication, unspecified (principal); M54.9 Dorsalgia, unspecified; I10 Essential (primary) hypertension; E11.9 Type 2 diabetes mellitus without complications; I25.2 Old myocardial infarction; F03.90 Unspecified dementia, unspecified severity, without behavioral disturbance, psychotic disturbance, mood disturbance, and anxiety; G47.30 Sleep apnea, unspecified; K21.9 Gastro-esophageal reflux disease without esophagitis; Z79.899 Other long term (current) drug therapy; Z79.82 Long term (current) use of aspirin; Z87.891 Personal history of nicotine dependence; Z88.0 Allergy status to penicillin
CPT/HCPCS: 36415; 51701; 80053; 80307; 81003; 83735; 85025; 99285-25; J7121